=== PATIENT | female | born 1960 | race Hispanic/Latino ===

== ENCOUNTER → 2019-01-29 | Outpatient (CLI) | payer OTHER ==
[~2019-01-29] MED LIST: ALBUTEROL0.63 MG/3 INH; ASPIR 8181 MG PO; BUDESONIDE0.5 MG/2 M NEB; COMPOUND PAIN CREAM TOP; GABAPENTIN300 MG PO; GLIPIZIDE5 MG PO; HYDROXYZINE HCL25 MG PO; JANUVIA100 MG PO; MELOXICAM7.5 MG PO; METFORMIN HCL500 MG PO; MONTELUKAST SOD10 MG PO; MULTI-VITAMIN1 EACH PO; ONGLYZA5 MG PO; PANTOPRAZOLE SO40 MG PO; PROAIR HFA INH8.5 GM PO; TRIAMTERENE-HC1 EAC1 PO; TYLENOL WITH C1 EACH PO; ULTRAM 50MG50 MG PO; ULTRAM50 MG PO; VITAMIN D250000 UNIT PO; XANAX0.5 MG PO; XANAX1 MG PO; ZOFRAN ODT4 MG PO; ZOFRAN ODT4 MG SL; ZYRTEC10 M3 PO
--- NOTE | 2019-01-29 15:02 | Diagnostic Imaging Report ---
TECHNIQUE: Magnetic resonance imaging of the LEFT KNEE was performed WITHOUT injected contrast. HISTORY: KNEE PAIN COMPARISON: None available. FINDINGS: LIGAMENTS AND TENDONS: ACL: Intact, mild intrasubstance degeneration. PCL: Intact Collateral ligaments: Intact Iliotibial band: Unremarkable Popliteal tendon: Intact Extensor mechanism: Mild thickening and increased intrasubstance signal the proximal patellar tendon. JOINT: Menisci: Medial: Complex tearing and attenuation of the posterior root near the tibial attachment and the free margin of the posterior horn and body. Peripheral extrusion of the remaining body. Lateral: Intact Articular Cartilage: Medial Compartment: High-grade to full-thickness erosions of the weightbearing cartilage. Full-thickness fissuring at the posterior aspect of the medial femoral condyle with adjacent mild subchondral cystic changes. Lateral Compartment: Low-grade erosion of the weightbearing cartilage. Patellofemoral Compartment: Full-thickness fissuring of the central aspect of the lateral femoral trochlea with adjacent mild subchondral cystic changes. Joint Fluid: Synovitis and small effusion. BONES: Otherwise, no focal or infiltrative bone marrow replacing abnormality. No acute fracture. Mild subchondral cystic changes at the posterior aspect of the medial tibial plateau. SOFT TISSUES: Otherwise, unremarkable. IMPRESSION: 1. Medial and patellofemoral compartment predominant tricompartmental degenerative changes including degenerative tearing of the medial meniscus. 2. Mild proximal patellar tendinosis. Signed by: Dr. Torsten Go D.O., M.M.M. on 01/29/2019 2:59 PM
== END ==
LOC: MRI 09:32
PROVIDERS: ATTEND Specialist
DX: M25.562 Pain in left knee (principal)

== ENCOUNTER → 2019-02-12 | Day surgery (SDC) | payer OTHER ==
[2019-02-10 14:03] LABS: ANION GAP 14.8 mmol/L (8-16); BLOOD UREA NITROGEN 16 mg/dL (7-26); BUN/CREATININE RATIO 19 (6-25); CALCIUM 9.5 mg/dL (8.4-10.2); CARBON DIOXIDE 27 mmol/L (22-29); CHLORIDE 103 mmol/L (98-107); CREATININE, SERUM 0.85 mg/dL (0.57-1.11); EST GLOMERULAR FILTRATION RATE > 60 ML/MIN (60-); GLUCOSE 299 mg/dL (74-118); POTASSIUM 3.8 mmol/L (3.5-5.1); SODIUM 141 mmol/L (136-145)
[~2019-02-12] MED LIST changes: +ACETAMINOPHEN 1000 MG/100 ML IV ONE; +BUPIVACAINE 0.5%/EPI 30 ML SDV INJ ONE; +CEFAZOLIN SOD 1 GM/NS 50ML 100 ML IV ONE; +DESFLURANE 240 ML BTL INH ONE; +DEXAMETHASONE SOD PHOS INJ 4 MG/ML VIAL ONE; +FENTANYL CITRATE/PF 100MCG/2 ML INJ ONE; +INSULIN REGULAR, HUMAN 100 UNIT/1 ML 3ML VIAL ONE; +KETOROLAC TROMETHAMINE 30 MG/ML VIAL ONE; +ONDANSETRON HCL INJ 2MG/ML 2ML 2 MG/ML VIAL ONE; +PROPOFOL IV EMULSION 10 MG/ML 20 ML VIAL ONE; +tresiba SQ
--- OUTSIDE RECORDS SUMMARY | 2019-02-12 06:58 | XMS REPORT ---
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 Active Assessment Foot pain, left M79.672 Active Problem Joint pain M25.50 Active Medications Medication Code System Code Instructions Start Date End Date Status Dosage Januvia ND 66156866020 100 MG Orally Once a day Active 1 tablet Gabapentin ND 62861035405 600 MG Orally Once a day Active 1 tablet GlipiZIDE ND 58223136746 10 MG Orally Once a day Active 1 tablet Vital Signs Date/Time: May 07, 2018 BMI 29.94 Index Weight 163.7 lbs Height 62 in Temperature 97.6 F Cardiac Monitoring Heart Rate 74 /min Blood Pressure Diastolic 84 mm Hg Blood Pressure Systolic 132 mm Hg Results No Known Results Summary Purpose [employer] Submission
--- OUTSIDE RECORDS SUMMARY | 2019-02-12 06:58 | XMS REPORT ---
Author Rod Barba Organization [employer] Address Unknown Phone Unavailable Care Team Providers Care Bowling Ball Grader And Marker Name Role Phone Rod Mendez CP Unavailable Allergies No Known Allergies Problems Problem Type Condition Code Onset Dates Condition Status Problem Joint pain M25.50 Active Medications No Known Medications Results No Known Results Summary Purpose [employer] Submission
--- OUTSIDE RECORDS SUMMARY | 2019-02-12 06:58 | XMS REPORT | Continuity of Care Document ---
Author Author [facility] [place] [facility] Address Unknown Phone Unavailable Problems Problem Status Onset Date Classification Date Reported Comments Source Joint pain Active Problem 09/19/2018 Marques Mendez Hand pain, left Active Problem 09/19/2018 Marques Sheltoner [facility] arthritis, thumb, degenerative Active Diagnosis 05/16/2018 Marques Mendez Foot pain, left Active Diagnosis 05/16/2018 Marques Mendez Foot pain, right Active Diagnosis 04/17/2018 Marques Mendez Hand pain, right Active Diagnosis 04/17/2018 Marques Sheltoner Medications Medication Details Route Status Patient Instructions Ordering Provider Order Date Source Voltaren Gel apply to affected area Transdermal Active 1% Transdermal Four times a day Kathy 05/10/2018 Marques Mendez PredniSONE 1 tab Orally Active 5 MG Orally Once a day Kathy 04/05/2018 Marques Mendez Januvia 1 tablet Orally Active 100 MG Orally Once a day Kathy Marques Mendez Gabapentin 1 tablet Orally Active 600 MG Orally Once a day Kathy Marques Mendez GlipiZIDE 1 tablet Orally Active 10 MG Orally Once a day Kathy Marques Mendez Meloxicam 1 tablet Orally Active 15 MG Orally Once a day Kathy Marques Mendez Allergies, Adverse Reactions, Alerts Substance Category Reaction Severity Reaction type Status Date Reported Comments Source metformin Adverse Reaction upset stomach Adverse Reaction Active 09/11/2018 Marques Mendez vicodin Adverse Reaction dizziness Adverse Reaction Active 09/11/2018 Marques Mendez Immunizations Immunization Date Given Site Status Last Updated Comments Source Results Order Name Results Value Reference Range Date Interpretation Comments Source Vital Signs Vital Sign Value Date Comments Source Weight 165.8 09/11/2018 Marques Mendez Height 62 09/11/2018 Marques Mendez Temperature Oral (F) 97.9 F 09/11/2018 Marques Mendez Heart Rate 75 09/11/2018 Marqueseva Mendez Diastolic (mm Hg) 70 09/11/2018 Marques Mendez Systolic (mm Hg) 120 09/11/2018 Marques Mendez Weight 163.7 05/07/2018 Marques Mendez Height 62 05/07/2018 Marques Mendez Temperature Oral (F) 97.6 F 05/07/2018 Marques Mendez Heart Rate 74 05/07/2018 Marques Mendez Diastolic (mm Hg) 84 05/07/2018 Marques Mendez Systolic (mm Hg) 132 05/07/2018 Marques Mendez Weight 163 04/05/2018 Marques Mendez Height 62 04/05/2018 Marques Mendez Temperature Oral (F) 97.2 F 04/05/2018 Marques Mendez Heart Rate 72 04/05/2018 Marques Mendez Diastolic (mm Hg) 76 04/05/2018 Marques Mendez Systolic (mm Hg) 116 04/05/2018 Marques Mendez Encounters Location Location Details Encounter Type Encounter Number Reason For Visit Attending Provider ADM Date DC Date Status Source Procedures Procedure Code Date Perfomer Comments Source
--- OUTSIDE RECORDS SUMMARY | 2019-02-12 06:58 | XMS REPORT ---
Author Author Ama Chavez [facility] e[employer] Address Unknown Phone Unavailable Care Team Providers Care Steamer Operator Name Role Phone Ama Chavez CP Unavailable Allergies, Adverse Reactions, Alerts Substance Reaction Event Type metformin upset stomach Non Drug Allergy vicodin dizziness Non Drug Allergy Problems Problem Type Condition Code Onset Dates Condition Status Assessment Joint pain M25.50 Active Assessment Hand pain, left M79.642 Active Problem Joint pain M25.50 Active Assessment Foot pain, right M79.671 Active Assessment Hand pain, right M79.641 Active Assessment Foot pain, left M79.672 Active Medications Medication Code System Code Instructions Start Date End Date Status Dosage Gabapentin [facility] 22470407087 600 MG Orally Once a day Active 1 tablet PredniSONE NDC 0 5 MG Orally Once a day Apr 05, 2018 Aug 03, 2018 Active 1 tab GlipiZIDE ND 30652974969 10 MG Orally Once a day Active 1 tablet Meloxicam ND 08363876858 15 MG Orally Once a day Active 1 tablet Januvia ND 93565815094 100 MG Orally Once a day Active 1 tablet Vital Signs Date/Time: Apr 05, 2018 BMI 29.81 Index Weight 163 lbs Height 62 in Temperature 97.2 F Cardiac Monitoring Heart Rate 72 /min Blood Pressure Diastolic 76 mm Hg Blood Pressure Systolic 116 mm Hg Results No Known Results Summary Purpose [employer] Submission
--- OUTSIDE RECORDS SUMMARY | 2019-02-12 06:58 | XMS REPORT ---
Author Author Ama Chavez Organization [employer] Address Unknown Phone Unavailable Care Team Providers Care Machine Programmer Name Role Phone Ama Chavez Unavailable Allergies No Known Allergies Problems Problem Type Condition Code Onset Dates Condition Status Problem Joint pain M25.50 Active Medications Medication Code System Code Instructions Start Date End Date Status Dosage Voltaren Gel NDC 0 1% Transdermal Four times a day May 10, 2018 Aug 08, 2018 Active apply to affected area Results No Known Results Summary Purpose [employer] Submission
--- OUTSIDE RECORDS SUMMARY | 2019-02-12 06:59 | XMS REPORT ---
Author Author Ama Chavez Organization [employer] Address Unknown Phone Unavailable Care Team Providers Care Professor Of Latin American Studies Name Role Phone Ama Chavez CP Unavailable Allergies, Adverse Reactions, Alerts Substance Reaction Event Type metformin upset stomach Non Drug Allergy vicodin dizziness Non Drug Allergy Problems Problem Type Condition Code Onset Dates Condition Status Problem Joint pain M25.50 Active Problem Hand pain, left M79.642 Active Assessment Joint pain M25.50 Active Assessment Hand pain, left M79.642 Active Medications Medication Code System Code Instructions Start Date End Date Status Dosage GlipiZIDE [facility] 68638582378 10 MG Orally Once a day Active 1 tablet Januvia [facility] 63544874314 100 MG Orally Once a day Active 1 tablet Gabapentin [facility] 29844007547 600 MG Orally Once a day Active 1 tablet Meloxicam [facility] 23846093547 15 MG Orally Once a day Active 1 tablet Vital Signs Date/Time: Sep 11, 2018 BMI 30.32 Index Weight 165.8 lbs Height 62 in Temperature 97.9 F Cardiac Monitoring Heart Rate 75 /min Blood Pressure Diastolic 70 mm Hg Blood Pressure Systolic 120 mm Hg Results No Known Results Summary Purpose [employer] Submission
--- OUTSIDE RECORDS SUMMARY | 2019-02-12 06:59 | XMS REPORT ---
[facility] Address Unknown Phone Unavailable Care Team Providers Care Raw Scales Operator Name Role Phone KASHMIR JOSEPH Unavailable Unavailable Problems This patient has no known problems. Allergies, Adverse Reactions, Alerts This patient has no known allergies or adverse reactions. Medications This patient has no known medications. Results Test Description Test Time Test Comments Text Results Atomic Results Result Comments MRI KNEE LEFT WO 2019-01-29 14:26:00 [facility] [address] [address] Patient Name: DORIAN MARIN MR #: [id number] : 1960 Age/Sex: 58/F Req #: [id number] [facility] Physician: Ordered by: KASHMIR JOSEPH MD Report #: [id number] Location: MRI Room/Bed: Procedure: [id number] MRI/MRI KNEE LEFT WO Exam Date: Exam Time: REPORT STATUS: Signed TECHNIQUE: Magnetic resonance imaging of the LEFT KNEE was performed WITHOUT injected contrast. HISTORY: KNEE PAIN COMPARISON: None available. FINDINGS: LIGAMENTS AND TENDONS: ACL: Intact, mild intrasubstance degeneration. PCL: Intact Collateral ligaments: Intact Iliotibial band: Unremarkable Popliteal tendon: Intact Extensor mechanism: Mild thickening and increased intrasubstance signal the proximal patellar tendon. JOINT: Menisci: Medial: Complex tearing and attenuation of the posterior root near the tibial attachment and the free margin of the posterior horn and body. Peripheral extrusion of the remaining body. Lateral: Intact Articular Cartilage: Medial Compartment: High-grade to full-thickness erosions of the weightbearing cartilage. Full-thickness fissuring at the posterior aspect of the medial femoral condyle with adjacent mild subchondral cystic changes. Lateral Compartment: Low-grade erosion of the weightbearing cartilage. Patellofemoral Compartment: Full-thickness fissuring of the central aspect of the lateral femoral trochlea with adjacent mild subchondral cystic changes. Joint Fluid: Synovitis and small effusion. BONES: Otherwise, no focal or infiltrative bone marrow replacing abnormality. No acute fracture. Mild subchondral cystic changes at the posterior aspect of the medial tibial plateau. SOFT TISSUES: Otherwise, unremarkable. IMPRESSION: 1. Medial and patellofemoral compartment predominant tricompartmental degenerative changes including degenerative tearing of the medial meniscus. 2. Mild proximal patellar tendinosis. Signed by: Dr. Terri Go D.O., M.M.M. on 01/29/2019 2:59 PM Dictated By: TERRI GO DO [id number] Transcribed By: CAT on 01/29/19 145 COPY TO: KASHMIR JOSEPH MD
--- OUTSIDE RECORDS SUMMARY | 2019-02-12 06:59 | XMS REPORT ---
Author Author Rod Mendez Organization [employer] Address Unknown Phone Unavailable Care Team Providers Care Family Partner Name Role Phone Rod Mendez CP Unavailable Allergies No Known Allergies Problems Problem Type Condition Code Onset Dates Condition Status Problem Joint pain M25.50 Active Problem Hand pain, left M79.642 Active Medications No Known Medications Results No Known Results Summary Purpose [employer] Submission
[2019-02-12 12:30] VITALS: BP 123/76
--- NOTE | 2019-02-17 18:59 | Operative Report ---
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 OPERATION/PROCEDURE PERFORMED: The patient underwent left knee examination under anesthesia, left knee arthroscopy, left knee partial medial meniscectomy, left knee chondroplasty of the patella, the trochlea, the medial femoral condyle, the medial tibial plateau, lateral femoral condyle and lateral tibial plateau. CARTON LETTERING MACHINE OPERATOR: There was no licensed loan officer assistant. ANESTHESIA: General endotracheal intubation anesthesia. IV FLUIDS: Per the anesthesia record. COMPLICATIONS: None. BRIEF DISCUSSION OF THE PATIENT'S OPERATIVE PROCEDURE: Ms. Rodríguez was taken to the operating room, placed in the supine position on the operating table. Following induction of general anesthesia as well as endotracheal intubation, the patient's left lower extremity was examined under anesthesia. She was found to have a mild effusion within the knee joint, but otherwise ligamentously stable knee. The patient's lower extremity was prepped and draped in standard surgical fashion. A two-port technique was used to provide this patient arthroscopic evaluation of the knee joint. Examination of suprapatellar pouch and medial lateral gutters found no evidence of loose bodies. There was however evidence of chondromalacia of the patella and trochlear surfaces. The scope was advanced to medial compartment. Examination of medial compartment demonstrated a tear of the posterior horn and root of the medial meniscus. There was chondromalacia of the articulating surfaces. A thorough examination of meniscus injury demonstrated a tear that was unfixable. A partial meniscectomy was therefore performed using combination of biting forceps and a motorized shaver. A chondroplasty of the medial femoral condyle, medial tibial plateau were also performed at this time. Scope was advanced to the intercondylar notch. The anterior cruciate ligament was identified and found to be intact. Scope was advanced to the lateral compartment and chondromalacia of the articulating surfaces were encountered. Chondroplasty of the lateral femoral condyle, lateral tibial plateau performed at this time. Scope was then advanced to the suprapatellar pouch and chondroplasties of the patella and trochlea were performed. It was deflated with sterile normal saline. The portal sites were closed with 4-0 nylon suture. The portal sites as well as the knee itself has been injected with 0.5% Marcaine with epinephrine. Sterile dressings were applied. The patient was then awakened and taken to the postanesthesia care in stable condition. MD JARRETT Rose/DENSIHA /[id number]
== END | disposition home or self-care (01) ==
LOC: OR 06:56
PROVIDERS: ATTEND Specialist
DX: S83.222A Peripheral tear of medial meniscus, current injury, left knee, initial encounter (principal); M17.12 Unilateral primary osteoarthritis, left knee; M22.42 Chondromalacia patellae, left knee; E11.9 Type 2 diabetes mellitus without complications; W18.49XA Other slipping, tripping and stumbling without falling, initial encounter; Y92.009 Unspecified place in unspecified non-institutional (private) residence as the place of occurrence of the external cause; Z88.6 Allergy status to analgesic agent; Z88.8 Allergy status to other drugs, medicaments and biological substances; Z01.810 Encounter for preprocedural cardiovascular examination; Z01.812 Encounter for preprocedural laboratory examination; Z79.84 Long term (current) use of oral hypoglycemic drugs; Z79.82 Long term (current) use of aspirin; Z79.4 Long term (current) use of insulin; Z87.891 Personal history of nicotine dependence
CPT/HCPCS: 29881; 36415 ×2; 80048; 82948; 93005; J0131; J0690; J1100; J1885; J2405; J2704; J1817; J3010

== ENCOUNTER 2019-03-18 09:58 | Outpatient (RCR) | payer OTHER ==
[~2019-03-18 09:58] MED LIST changes: -ACETAMINOPHEN 1000 MG/100 ML IV ONE; -BUPIVACAINE 0.5%/EPI 30 ML SDV INJ ONE; -CEFAZOLIN SOD 1 GM/NS 50ML 100 ML IV ONE; -DESFLURANE 240 ML BTL INH ONE; -DEXAMETHASONE SOD PHOS INJ 4 MG/ML VIAL ONE; -FENTANYL CITRATE/PF 100MCG/2 ML INJ ONE; -INSULIN REGULAR, HUMAN 100 UNIT/1 ML 3ML VIAL ONE; -KETOROLAC TROMETHAMINE 30 MG/ML VIAL ONE; -ONDANSETRON HCL INJ 2MG/ML 2ML 2 MG/ML VIAL ONE; -PROPOFOL IV EMULSION 10 MG/ML 20 ML VIAL ONE
== END 2019-03-19 ==
LOC: PT 09:58
PROVIDERS: ATTEND Specialist
DX: M17.12 Unilateral primary osteoarthritis, left knee (principal); M25.562 Pain in left knee; M25.662 Stiffness of left knee, not elsewhere classified; R26.2 Difficulty in walking, not elsewhere classified; M62.81 Muscle weakness (generalized)

== ENCOUNTER 2019-04-01 15:57 | Outpatient (RCR) | payer OTHER | END 2019-04-19 | LOC: PT 15:57 | PROVIDERS: ATTEND Specialist | DX: M17.12 Unilateral primary osteoarthritis, left knee (principal); R26.2 Difficulty in walking, not elsewhere classified; M25.562 Pain in left knee; M25.662 Stiffness of left knee, not elsewhere classified; M62.81 Muscle weakness (generalized) ==

== ENCOUNTER 2019-04-28 10:57 | Outpatient (RCR) | payer OTHER | END 2019-05-19 | LOC: PT 10:57 | PROVIDERS: ATTEND Specialist | DX: M17.12 Unilateral primary osteoarthritis, left knee (principal); R26.2 Difficulty in walking, not elsewhere classified; M25.562 Pain in left knee; M25.662 Stiffness of left knee, not elsewhere classified; M62.81 Muscle weakness (generalized) ==

== ENCOUNTER → 2021-06-22 | Day surgery (SDC) | payer BC, OTHER ==
[2021-06-21 14:01] LABS: ANION GAP 13.7 mmol/L (8-16); CALCIUM 8.7 mg/dL (8.4-10.2); CREATININE, SERUM 0.96 mg/dL (0.57-1.11); POTASSIUM 3.7 mmol/L (3.5-5.1)
[~2021-06-22] MED LIST changes: +BUPIVACAINE HCL 0.5% INJ 30 ML VIAL INJ ONE; +FENTANYL CITRATE/PF 100MCG/2 ML INJ ONE; +INSULIN REGULAR, HUMAN 100 UNIT/1 ML ONE; +KETOROLAC TROMETHAMINE 30 MG/ML VIAL ONE; +LIDOCAINE HCL 2% LOCAL INJ 5 ML SDV VIAL INJ ONE; +MIDAZOLAM HCL 2 MG/2 ML VIAL ONE; +ONDANSETRON HCL INJ 2MG/ML 2ML 2 MG/ML VIAL ONE; +PHENYLEPHRINE HCL 1% 10 MG/ML VIAL ONE; +POVIDONE IODINE 0.05% 0.05 % ML PO ONE; +PROPOFOL IV EMULSION 10 MG/ML 20 ML VIAL ONE; +SEVOFLURANE INHAL SOLN 250 ML PEN BTL ONE; +SODIUM CHLORIDE 0.9% 50ML 100 ML ONE
[2021-06-22 10:42] VITALS: BP 149/83
== END | disposition home or self-care (01) ==
LOC: OR 06:25
PROVIDERS: ATTEND Specialist
DX: S83.231A Complex tear of medial meniscus, current injury, right knee, initial encounter (principal); S83.221A Peripheral tear of medial meniscus, current injury, right knee, initial encounter; M17.11 Unilateral primary osteoarthritis, right knee; M22.41 Chondromalacia patellae, right knee; E11.9 Type 2 diabetes mellitus without complications; J45.909 Unspecified asthma, uncomplicated; F41.9 Anxiety disorder, unspecified; X58.XXXA Exposure to other specified factors, initial encounter; Z88.6 Allergy status to analgesic agent; Z88.8 Allergy status to other drugs, medicaments and biological substances; Z01.810 Encounter for preprocedural cardiovascular examination; Z01.812 Encounter for preprocedural laboratory examination; Z20.822 Contact with and (suspected) exposure to COVID-19; Z79.82 Long term (current) use of aspirin; Z79.84 Long term (current) use of oral hypoglycemic drugs
CPT/HCPCS: 29881; 36415 ×2; 80048; 82948; 93005; J0690; J1885; J2001; J2250; J2370; J2405; J2704; J3010; U0002; J1817

== ENCOUNTER 2021-07-15 07:55 | Outpatient (RCR) | payer BC ==
[~2021-07-15 07:55] MED LIST changes: -BUPIVACAINE HCL 0.5% INJ 30 ML VIAL INJ ONE; -FENTANYL CITRATE/PF 100MCG/2 ML INJ ONE; -INSULIN REGULAR, HUMAN 100 UNIT/1 ML ONE; -KETOROLAC TROMETHAMINE 30 MG/ML VIAL ONE; -LIDOCAINE HCL 2% LOCAL INJ 5 ML SDV VIAL INJ ONE; -MIDAZOLAM HCL 2 MG/2 ML VIAL ONE; -ONDANSETRON HCL INJ 2MG/ML 2ML 2 MG/ML VIAL ONE; -PHENYLEPHRINE HCL 1% 10 MG/ML VIAL ONE; -POVIDONE IODINE 0.05% 0.05 % ML PO ONE; -PROPOFOL IV EMULSION 10 MG/ML 20 ML VIAL ONE; -SEVOFLURANE INHAL SOLN 250 ML PEN BTL ONE; -SODIUM CHLORIDE 0.9% 50ML 100 ML ONE
== END 2021-07-19 ==
LOC: PT 07:55
PROVIDERS: ATTEND Specialist
DX: M17.12 Unilateral primary osteoarthritis, left knee (principal); R26.2 Difficulty in walking, not elsewhere classified; M25.562 Pain in left knee; M25.662 Stiffness of left knee, not elsewhere classified; M62.81 Muscle weakness (generalized)

== ENCOUNTER 2021-08-09 09:58 | Outpatient (RCR) | payer BC | END 2021-08-19 | LOC: PT 09:58 | PROVIDERS: ATTEND Specialist | DX: M17.11 Unilateral primary osteoarthritis, right knee (principal); S83.31XA Tear of articular cartilage of right knee, current, initial encounter ==

== ENCOUNTER 2021-08-23 07:39 | Outpatient (RCR) | payer BC | END 2021-09-19 | LOC: PT 07:39 | PROVIDERS: ATTEND Specialist | DX: M17.12 Unilateral primary osteoarthritis, left knee (principal); R26.2 Difficulty in walking, not elsewhere classified; M25.562 Pain in left knee; M25.662 Stiffness of left knee, not elsewhere classified; M62.81 Muscle weakness (generalized) ==

== ENCOUNTER → 2024-02-16 | Day surgery (SDC) | payer BC ==
[~2024-02-16] MED LIST changes: +HYOSCYAMINE SULFATE 0.5 MG/ML INJ ONE; +LIDOCAINE HCL 2% LOCAL INJ 5 ML SDV VIAL INJ ONE; +METOCLOPRAMIDE HCL 10 MG/2ML VIAL ONE; +PROPOFOL IV EMULSION 10 MG/ML 20 ML VIAL ONE
[2024-02-16] MEDS: LACTATED RINGER'S 1,000 ML ONE (09:23)
[2024-02-16 11:16] VITALS: TEMP 97
[2024-02-16 11:38] VITALS: BP 150/85; PULSE 71; RESP 18; O2SAT 99
[2024-02-16 12:59] LABS: WBC,FECAL (FECAL LACTOFERRIN) NEGATIVE (NEGATIVE)
[2024-02-20 08:15] LABS: ENDOMYSIAL ANTIBODIES, IGA Negative (Negative)
[2024-02-20 08:46] LABS: IMMUNOGLOBULIN A 485 mg/dL (87-352); TISSUE TRANSGLUTAMINASE IGA AB <2 U/mL (0-3)
== END | disposition home or self-care (01) ==
LOC: OR 08:48
PROVIDERS: ATTEND Internal Medicine Gastroenterology
DX: K22.2 Esophageal obstruction (principal); K63.5 Polyp of colon; K29.50 Unspecified chronic gastritis without bleeding; K52.9 Noninfective gastroenteritis and colitis, unspecified; K20.90 Esophagitis, unspecified without bleeding; K21.9 Gastro-esophageal reflux disease without esophagitis; K31.89 Other diseases of stomach and duodenum; K62.89 Other specified diseases of anus and rectum; E11.9 Type 2 diabetes mellitus without complications; J45.909 Unspecified asthma, uncomplicated; N39.0 Urinary tract infection, site not specified; G62.9 Polyneuropathy, unspecified; M06.9 Rheumatoid arthritis, unspecified; Z88.6 Allergy status to analgesic agent; Z88.8 Allergy status to other drugs, medicaments and biological substances; Z91.048 Other nonmedicinal substance allergy status; Z01.810 Encounter for preprocedural cardiovascular examination; Z79.1 Long term (current) use of non-steroidal anti-inflammatories (NSAID); Z79.84 Long term (current) use of oral hypoglycemic drugs; Z79.4 Long term (current) use of insulin; Z79.899 Other long term (current) drug therapy; Z79.82 Long term (current) use of aspirin
CPT/HCPCS: 43239; 43450; 45380; 45385; 82784; 83516; 83630; 83993; 86140; 86256; 87045; 87177; 87324; 87328; 87449; 93005; C9113; J1980; J2001; J2704; J2765; J7121; 45378